=== PATIENT | male | born 1955 | race Caucasian/White ===

== ENCOUNTER 2016-11-16 06:36 | Observation (INO) | payer OTHER ==
[~2016-11-16] VITALS: Ht 185.4 cm; Wt 96.0 kg
[~2016-11-16 06:36] MED LIST: ASPI-496 PO; ATOR20TA PO; CELE200C PO; EZET10TA3 PO; FISH OIL PO; FLUT16SP2 NAS; MULT-412 PO; PANT20TA2 PO
[2016-11-16] MEDS: SODIUM CHLORIDE 0.9% 1,000 ML IV SCH ×3 (06:48→22:48)
[2016-11-16] MEDS ORDERED: CEFAZOLIN PMX 1GM/50ML 50 ML IVPB ONE (07:00)
[2016-11-16 07:03] VITALS: BP 139/93
[2016-11-16] MEDS ORDERED: FENTANYL PF 100 MCG/2ML ONE (07:25)
[2016-11-16] MEDS ORDERED: MIDAZOLAM 1 MG/ML, 5ML ONE (07:26)
[2016-11-16] MEDS ORDERED: CEFAZOLIN PMX 1GM/50ML 50 ML ONE (07:26)
[2016-11-16] MEDS ORDERED: LIDOCAINE 2%, 20ML ONE (07:26)
[2016-11-16] MEDS ORDERED: CEFAZOLIN 1,000 MG ONE (07:26)
[2016-11-16 09:30] VITALS: BP 145/91
[2016-11-16] MEDS ORDERED: ACETAMINOPHEN 325 MG TABLET PO PRN (09:30)
[2016-11-16] MEDS ORDERED: ZOLPIDEM 5MG TABLET PO PRN (09:30)
[2016-11-16] MEDS: CEFAZOLIN PMX 1GM/50ML 50 ML IV SCH ×2 (09:30→17:35)
[2016-11-16] MEDS ORDERED: FLUTICASONE NASAL SPRAY 16GM NAS PRN (10:00)
[2016-11-16 14:00] VITALS: BP 133/65
[2016-11-16 20:00] VITALS: BP 118/70
[2016-11-16] MEDS ORDERED: ATORVASTATIN 20 MG TABLET PO SCH (21:00)
[2016-11-17] MEDS: CEFAZOLIN PMX 1GM/50ML 50 ML IV SCH ×2 (01:43→09:19)
[2016-11-17 04:07] VITALS: BP 132/82
[2016-11-17] MEDS ORDERED: ASPIRIN 81 MG TABLET EC PO SCH (06:00)
[2016-11-17] MEDS: SODIUM CHLORIDE 0.9% 1,000 ML IV SCH (06:35)
[2016-11-17] MEDS ORDERED: PANTOPRAZOLE 20MG TABLET PO SCH (07:30)
[2016-11-17 07:32] VITALS: BP 135/83
[2016-11-17] MEDS ORDERED: ACET325T14 PO (08:53)
[2016-11-17] MEDS ORDERED: MULTIVITAMIN 1 TABLET PO SCH (09:00)
[2016-11-17] MEDS ORDERED: OMEGA-3/FISH OIL CAPSULE PO SCH (09:00)
[2016-11-17] MEDS ORDERED: EZETIMIBE 10 MG TABLET PO SCH (09:00)
== END 2016-11-17 12:07 | disposition home or self-care (01) ==
LOC: CACL 06:36 → ORIP 09:10 → 5SO 09:30 → DCLOUNGE 11-17 11:31
PROVIDERS: ADMIT Internal Medicine Cardiovascular Disease; ATTEND Internal Medicine Cardiovascular Disease
DX: I49.5 Sick sinus syndrome (principal); I44.1 Atrioventricular block, second degree; R00.1 Bradycardia, unspecified; E78.00 Pure hypercholesterolemia, unspecified; E78.2 Mixed hyperlipidemia; G47.30 Sleep apnea, unspecified; M48.06 Spinal stenosis, lumbar region
CPT/HCPCS: 33208; 36415; 71010; 71020; 80053; 85025; 85610; 85730; 93005; 96365; 96366; 96375; C1779; C1785; C1892; C1898; G0378; J0690; J2250; J3010; J3490

== ENCOUNTER → 2018-06-23 | Outpatient (CLI) | payer BC ==
[~2018-06-23] MED LIST changes: +ACET325T14 PO; +EZET10TA18 PO; -EZET10TA3 PO
== END | disposition home or self-care (01) ==
LOC: RAD 08:43
PROVIDERS: ATTEND Registered Nurse
DX: M51.36 Other intervertebral disc degeneration, lumbar region (principal); M50.221 Other cervical disc displacement at C4-C5 level; M47.892 Other spondylosis, cervical region; M48.02 Spinal stenosis, cervical region; M25.78 Osteophyte, vertebrae
CPT/HCPCS: 72050; 72110; 72141; 72148

== ENCOUNTER 2018-12-12 15:37 | Outpatient (CLI) | payer BC | END 2018-12-12 23:59 | disposition home or self-care (01) | LOC: CVU 15:37 | PROVIDERS: ATTEND Internal Medicine Cardiovascular Disease | DX: I08.0 Rheumatic disorders of both mitral and aortic valves (principal); E78.5 Hyperlipidemia, unspecified; Z95.0 Presence of cardiac pacemaker | CPT/HCPCS: 93306 ==

== ENCOUNTER → 2021-01-28 | Outpatient (CLI) | payer MEDICARE ==
[~2021-01-28] MED LIST changes: -EZET10TA18 PO; +EZET10TA70 PO; +FAMO20TA3 PO
== END | disposition home or self-care (01) ==
LOC: RAD 08:46
PROVIDERS: ATTEND Nurse Practitioner Critical Care Medicine
DX: M47.22 Other spondylosis with radiculopathy, cervical region (principal); M48.061 Spinal stenosis, lumbar region without neurogenic claudication; M51.36 Other intervertebral disc degeneration, lumbar region; M25.78 Osteophyte, vertebrae
CPT/HCPCS: 72050; 72110; 72148

== ENCOUNTER → 2021-02-13 | Outpatient (CLI) | payer MEDICARE | END | disposition home or self-care (01) | LOC: RAD 13:20 | PROVIDERS: ATTEND Nurse Practitioner Critical Care Medicine | DX: M47.22 Other spondylosis with radiculopathy, cervical region (principal); M48.061 Spinal stenosis, lumbar region without neurogenic claudication; M25.78 Osteophyte, vertebrae | CPT/HCPCS: 72141 ==

== ENCOUNTER → 2021-03-20 | Outpatient (CLI) | payer MEDICARE ==
[~2021-03-20] MED LIST changes: +REGADENOSON 0.4 MG/5 ML SYRINGE ONE
== END | disposition home or self-care (01) ==
LOC: CFH 12:43
PROVIDERS: ATTEND Internal Medicine Cardiovascular Disease
DX: Z01.810 Encounter for preprocedural cardiovascular examination (principal)
CPT/HCPCS: 78452; 93017; A9502; J2785

== ENCOUNTER → 2021-03-27 | Outpatient (CLI) | payer MEDICARE ==
[~2021-03-27] MED LIST changes: -REGADENOSON 0.4 MG/5 ML SYRINGE ONE
== END | disposition home or self-care (01) ==
LOC: CVU 07:56
PROVIDERS: ATTEND Internal Medicine Cardiovascular Disease
DX: Z01.810 Encounter for preprocedural cardiovascular examination (principal); I08.1 Rheumatic disorders of both mitral and tricuspid valves
CPT/HCPCS: 93306; 93356